=== PATIENT | male | born 1950 | race Caucasian/White ===

== ENCOUNTER → 2021-03-24 | Outpatient (CLI) | payer MEDICARE, OTHER | LOC: MRI 08:57 | PROVIDERS: ATTEND Urology | DX: N18.9 Chronic kidney disease, unspecified (principal) | CPT/HCPCS: 74181 ==

== ENCOUNTER → 2021-05-25 | Outpatient (CLI) | payer MEDICARE, OTHER | LOC: US 12:25 | PROVIDERS: ATTEND Urology | DX: N28.1 Cyst of kidney, acquired (principal) | CPT/HCPCS: 76770 ==

== ENCOUNTER → 2021-10-24 | Outpatient (CLI) | payer MEDICARE, OTHER | LOC: US 10:22 | PROVIDERS: ATTEND Urology | DX: N28.1 Cyst of kidney, acquired (principal) | CPT/HCPCS: 76770 ==

== ENCOUNTER → 2022-01-08 | Outpatient (CLI) | payer MEDICARE, OTHER | LOC: CT 15:26 | PROVIDERS: ATTEND Internal Medicine | DX: Z87.891 Personal history of nicotine dependence (principal) | CPT/HCPCS: 71250 ==

== ENCOUNTER → 2022-06-15 | Outpatient (CLI) | payer MEDICARE, OTHER | LOC: US 13:21 | PROVIDERS: ATTEND Urology | DX: N28.1 Cyst of kidney, acquired (principal) | CPT/HCPCS: 76770 ==

== ENCOUNTER → 2023-03-13 | Outpatient (REF) | payer MEDICARE, OTHER ==
[~2023-03-13] MED LIST: IOPAMIDOL 370 MG/ML 100 ML INFUS..BTL INJ ONE; SODIUM CHLORIDE 0.9% 0 ML ONE
[2023-03-13 14:11] LABS: CREATININE, SERUM 2.16 mg/dL (0.72-1.25)
== END ==
LOC: CT 13:09
PROVIDERS: ATTEND Urology
DX: N28.1 Cyst of kidney, acquired (principal)
CPT/HCPCS: 36415; 74178; 82565; 84520; Q9967; J7050

== ENCOUNTER 2023-11-26 02:32 | Emergency (ER) | payer MEDICARE, OTHER ==
[~2023-11-26] VITALS: Ht 172.7 cm; Wt 64.4 kg
[2023-11-26 04:07] VITALS: PULSE 87; RESP 17; TEMP 98.8
[2023-11-26] MEDS: ONDANSETRON HCL INJ 2MG/ML 2ML 2 MG/ML VIAL IV STA (04:39)
[2023-11-26] MEDS: FAMOTIDINE 20 MG/2 ML VIAL IV STA (04:40)
[2023-11-26 04:41] LABS: BASOPHILS % 0.3 % (0.0-1.0); EOSINOPHILS % 0.2 % (0.0-6.0); HEMATOCRIT 39.7 % (38.2-49.6); HEMOGLOBIN 12.2 g/dL (14.0-18.0); LYMPHOCYTES # (AUTO) 0.5 (1.0-3.2); LYMPHOCYTES % 8.3 % (18.0-39.1); MEAN CORPUSCULAR HEMOGLOBIN 29.1 pg (28-32); MEAN CORPUSCULAR HGB CONC 30.7 g/dL (31-35); MEAN CORPUSCULAR VOLUME 94.7 fL (81-99); MONOCYTES # (AUTO) 0.3 (0.2-0.8); MONOCYTES % 4.9 % (4.4-11.3); NEUTROPHILS # (AUTO) 5.3 (2.1-6.9); NEUTROPHILS % 86.1 % (38.7-80.0); PLATELET COUNT 125 x10e3/uL (140-360); RED BLOOD COUNT 4.19 x10e6/uL (4.3-5.7); RED CELL DISTRIBUTION WIDTH 12.7 % (11.7-14.4); WHITE BLOOD COUNT 6.15 x10e3/uL (4.8-10.8)
[2023-11-26] MEDS: SODIUM CHLORIDE 0.9% 1000ML 1,000 ML IV STA (04:43)
[2023-11-26 04:55] LABS: ALBUMIN 4.3 g/dL (3.5-5.0); ALBUMIN/GLOBULIN RATIO 1.2 (0.8-2.0); ANION GAP 18.3 mmol/L (8-16); BILIRUBIN,TOTAL 0.7 mg/dL (0.2-1.2); CREATININE, SERUM 2.21 mg/dL (0.72-1.25); POTASSIUM 4.3 mmol/L (3.5-5.1); TOTAL PROTEIN 7.8 g/dL (6.5-8.1)
[2023-11-26 04:56] LABS: TROPONIN I 0.007 ng/mL (0-0.300)
[2023-11-26] MEDS ORDERED: PEPCID20 MG PO ×2 (06:07→06:30)
[2023-11-26] MEDS ORDERED: PEPCID AC10 MG PO (06:07)
[2023-11-26] MEDS ORDERED: PAXLOVID 300-11 EAC1 PO ×2 (06:08→06:30)
[2023-11-26 06:18] VITALS: BP 155/100; PULSE 69; RESP 18; TEMP 97.8; O2SAT 96
== END 2023-11-26 06:35 | disposition home or self-care (01) ==
LOC: ER 02:35
DX: R10.13 Epigastric pain (principal); U07.1 COVID-19; R73.9 Hyperglycemia, unspecified; I10 Essential (primary) hypertension; E78.5 Hyperlipidemia, unspecified; K21.9 Gastro-esophageal reflux disease without esophagitis
CPT/HCPCS: 36415; 71045; 80053; 82550; 83690; 83880; 84484; 85025; 93005; 99284; J2405; J7030; U0002

== ENCOUNTER 2023-12-01 16:45 | Inpatient (IN) | payer MEDICARE, OTHER ==
[~2023-12-01] VITALS: Ht 172.7 cm; Wt 68.0 kg
[~2023-12-01 16:45] MED LIST changes: -IOPAMIDOL 370 MG/ML 100 ML INFUS..BTL INJ ONE; +PAXLOVID 300-11 EAC1 PO; +PEPCID AC10 MG PO; +PEPCID20 MG PO; -SODIUM CHLORIDE 0.9% 0 ML ONE
[2023-12-01 17:20] VITALS: TEMP 98.3
[2023-12-01] MEDS: ONDANSETRON HCL INJ 2MG/ML 2ML 2 MG/ML VIAL IV STA (18:04)
[2023-12-01] MEDS: SODIUM CHLORIDE 0.9% 1000ML 1,000 ML IV STA (18:04)
[2023-12-01] MEDS: Morphine 4mg INJECTION 4 MG/ML INJ IV STA (18:05)
[2023-12-01 18:12] LABS: BASOPHILS % 0.3 % (0.0-1.0); EOSINOPHILS % 0.2 % (0.0-6.0); HEMATOCRIT 40.3 % (38.2-49.6); HEMOGLOBIN 12.5 g/dL (14.0-18.0); LYMPHOCYTES # (AUTO) 0.4 (1.0-3.2); LYMPHOCYTES % 2.9 % (18.0-39.1); MEAN CORPUSCULAR HEMOGLOBIN 29.2 pg (28-32); MEAN CORPUSCULAR VOLUME 94.2 fL (81-99); MONOCYTES # (AUTO) 1.4 (0.2-0.8); MONOCYTES % 11.6 % (4.4-11.3); NEUTROPHILS # (AUTO) 10.4 (2.1-6.9); NEUTROPHILS % 84.5 % (38.7-80.0); PLATELET COUNT 168 x10e3/uL (140-360); RED BLOOD COUNT 4.28 x10e6/uL (4.3-5.7); RED CELL DISTRIBUTION WIDTH 12.7 % (11.7-14.4); WHITE BLOOD COUNT 12.29 x10e3/uL (4.8-10.8)
[2023-12-01 18:28] LABS: INR 1.13; PROTHROMBIN TIME 15.3 seconds (11.9-14.5)
[2023-12-01 18:29] LABS: PARTIAL THROMBOPLASTIN TIME 39.6 seconds (23.8-35.5)
[2023-12-01 18:40] LABS: ALBUMIN 3.7 g/dL (3.5-5.0); ALBUMIN/GLOBULIN RATIO 0.9 (0.8-2.0); ANION GAP 23.6 mmol/L (8-16); BILIRUBIN,TOTAL 2.1 mg/dL (0.2-1.2); CALCIUM 9.5 mg/dL (8.4-10.2); CREATININE, SERUM 2.34 mg/dL (0.72-1.25); MAGNESIUM 1.6 MG/DL (1.3-2.1); POTASSIUM 3.6 mmol/L (3.5-5.1); TOTAL PROTEIN 7.8 g/dL (6.5-8.1)
[2023-12-01 18:43] LABS: INFLUENZAE A&B ANTIGEN (RAPID) NEGATIVE (NEGATIVE); RESPIRATORY SYNC. VIRUS NEGATIVE (NEGATIVE)
[2023-12-01 18:45] LABS: TROPONIN I 0.006 ng/mL (0-0.300)
[2023-12-01 22:07] LABS: CLARITY,URINE CLEAR (CLEAR); COLOR,URINE YELLOW (YELLOW); GLUCOSE, URINE NEGATIVE (NEGATIVE); KETONES,URINE TRACE (NEGATIVE); LEUKOCYTE ESTERASE ,URINE NEGATIVE (NEGATIVE); NITRITE,URINE NEGATIVE (NEGATIVE); PH,URINE 5.5 (5 - 7); PROTEIN,URINE DIPSTICK 2+ (NEGATIVE)
[2023-12-01 22:08] LABS: BILIRUBIN,URINE 1+ (NEGATIVE); URINE UROBILINOGEN 4 mg/dL (0.2 - 1)
[2023-12-01 22:20] LABS: AMORPHOUS SEDIMENT,URINE FEW (FEW); BACTERIA,URINE MANY /HPF; EPITHELIAL CELLS,URINE FEW /LPF; TRANSITIONAL EPI CELLS,URINE FEW
[2023-12-01] MEDS ORDERED: ONDANSETRON HCL INJ 2MG/ML 2ML 2 MG/ML VIAL IV PRN (22:45)
[2023-12-01] MEDS: SODIUM CHLORIDE 0.9% 1000ML 1,000 ML IV SCH (23:09)
[2023-12-01 23:34] VITALS: PULSE 89; RESP 16; O2SAT 94
[2023-12-02] VITALS (11 sets, daily range): BP systolic 137–170; BP diastolic 72–86; PULSE 66–88; RESP 16–21; TEMP 98.3–99.1; O2SAT 92–98
[2023-12-02 05:36] LABS: BASOPHILS % 0.1 % (0.0-1.0); HEMATOCRIT 36.2 % (38.2-49.6); LYMPHOCYTES # (AUTO) 0.2 (1.0-3.2); LYMPHOCYTES % 2.4 % (18.0-39.1); MEAN CORPUSCULAR HEMOGLOBIN 28.9 pg (28-32); MEAN CORPUSCULAR HGB CONC 30.4 g/dL (31-35); MONOCYTES # (AUTO) 1.2 (0.2-0.8); MONOCYTES % 12.5 % (4.4-11.3); NEUTROPHILS # (AUTO) 7.8 (2.1-6.9); NEUTROPHILS % 84.6 % (38.7-80.0); PLATELET COUNT 121 x10e3/uL (140-360); RED BLOOD COUNT 3.81 x10e6/uL (4.3-5.7); RED CELL DISTRIBUTION WIDTH 12.8 % (11.7-14.4); WHITE BLOOD COUNT 9.23 x10e3/uL (4.8-10.8)
[2023-12-02 05:55] LABS: ALBUMIN/GLOBULIN RATIO 0.8 (0.8-2.0); ANION GAP 14.8 mmol/L (8-16); BILIRUBIN,TOTAL 3.2 mg/dL (0.2-1.2); CALCIUM 8.5 mg/dL (8.4-10.2); CREATININE, SERUM 1.94 mg/dL (0.72-1.25); POTASSIUM 3.8 mmol/L (3.5-5.1); TOTAL PROTEIN 6.7 g/dL (6.5-8.1)
[2023-12-02] MEDS ORDERED: ALBUTEROL/IPRATROPIUM 3 ML NEB NEB PRN (10:45)
[2023-12-02] MEDS ORDERED: MELATONIN 3 MG TAB PO PRN (10:45)
[2023-12-02] MEDS ORDERED: SIMETHICONE 80 MG CHEW PO PRN (10:45)
[2023-12-02] MEDS ORDERED: BUPIVACAINE HCL 0.5% INJ 30 ML VIAL INJ ONE (13:24)
[2023-12-02] MEDS ORDERED: ONDANSETRON HCL INJ 2MG/ML 2ML 2 MG/ML VIAL IV PRN (15:45)
[2023-12-02] MEDS: FAMOTIDINE 20 MG TAB PO SCH ×2 (17:00→21:40)
[2023-12-02] MEDS ORDERED: LIDOCAINE HCL 2% LOCAL INJ 5 ML SDV VIAL INJ ONE (17:45)
[2023-12-02] MEDS ORDERED: PROPOFOL IV EMULSION 10 MG/ML 20 ML VIAL ONE (17:45)
[2023-12-02] MEDS ORDERED: ACETAMINOPHEN 1000 MG/100 ML IV ONE (17:45)
[2023-12-02] MEDS ORDERED: SEVOFLURANE INHAL SOLN 250 ML PEN BTL ONE (17:45)
[2023-12-02] MEDS ORDERED: SUGAMMADEX SODIUM 200 MG/2 ML VIAL IV ONE (17:45)
[2023-12-02] MEDS ORDERED: ROCURONIUM BROMIDE 10 MG/ML 5ML VIAL IV ONE (17:45)
[2023-12-02] MEDS: DEXTROSE 5%/0.45% SOD CHL 1,000 ML IV SCH (17:57)
[2023-12-02] MEDS ORDERED: FENTANYL CITRATE/PF 100MCG/2 ML INJ ONE (18:03)
[2023-12-02] MEDS ORDERED: FAMOTIDINE 20 MG TAB PO SCH (21:00)
[2023-12-03] VITALS (10 sets, daily range): BP systolic 104–183; BP diastolic 68–98; PULSE 74–85; RESP 17–23; TEMP 97.3–98.4; O2SAT 95–99
[2023-12-03 05:48] LABS: BASOPHILS % 0.1 % (0.0-1.0); HEMOGLOBIN 10.1 g/dL (14.0-18.0); LYMPHOCYTES # (AUTO) 0.2 (1.0-3.2); LYMPHOCYTES % 2.4 % (18.0-39.1); MEAN CORPUSCULAR HEMOGLOBIN 29.4 pg (28-32); MEAN CORPUSCULAR HGB CONC 30.6 g/dL (31-35); MEAN CORPUSCULAR VOLUME 96.2 fL (81-99); MONOCYTES # (AUTO) 0.5 (0.2-0.8); MONOCYTES % 7.3 % (4.4-11.3); NEUTROPHILS # (AUTO) 6.1 (2.1-6.9); NEUTROPHILS % 89.6 % (38.7-80.0); PLATELET COUNT 125 x10e3/uL (140-360); RED BLOOD COUNT 3.43 x10e6/uL (4.3-5.7); WHITE BLOOD COUNT 6.75 x10e3/uL (4.8-10.8)
[2023-12-03 06:11] LABS: ALBUMIN 2.5 g/dL (3.5-5.0); ALBUMIN/GLOBULIN RATIO 0.7 (0.8-2.0); ANION GAP 14.2 mmol/L (8-16); BILIRUBIN,TOTAL 3.1 mg/dL (0.2-1.2); CALCIUM 8.3 mg/dL (8.4-10.2); POTASSIUM 4.2 mmol/L (3.5-5.1); TOTAL PROTEIN 5.9 g/dL (6.5-8.1)
[2023-12-03 06:54] LABS: ALBUMIN 2.5 g/dL (3.5-5.0); BILIRUBIN,DIRECT 2.7 mg/dL (0.0-0.5); TOTAL PROTEIN 5.9 g/dL (6.5-8.1)
[2023-12-03] MEDS: METOPROLOL TARTRATE INJ 1 MG/ML VIAL IV PRN (13:08)
[2023-12-03 14:24] LABS: HEPATITIS B SURFACE AG (P) Nonreactive
[2023-12-03 14:25] LABS: HEPATITIS C ANTIBODY Reactive
[2023-12-03] MEDS: METOPROLOL TARTRATE 25 MG TAB PO SCH (16:11)
[2023-12-03] MEDS: NIFEDIPINE CR 30 MG TAB PO SCH (16:11)
[2023-12-03 17:47] LABS: FERRITIN 1346.67 ng/mL (21.81-274.66)
[2023-12-03] MEDS: Morphine 4mg INJECTION 4 MG/ML INJ IV PRN (18:52)
[2023-12-03] MEDS: CYANOCOBALAMIN INJ 1,000 MCG/ML VIAL IM ONE (22:34)
[2023-12-04] VITALS (10 sets, daily range): BP systolic 125–158; BP diastolic 72–96; PULSE 64–93; RESP 18–21; TEMP 97.6–98.6; O2SAT 93–100
[2023-12-04] MEDS ORDERED: IRON SUCROSE 100 MG in SODIUM CHLORIDE 0.9% 100 ML IV SCH ×2 (05:00→09:00)
[2023-12-04 05:41] LABS: BASOPHILS % 0.1 % (0.0-1.0); HEMATOCRIT 36.6 % (38.2-49.6); HEMOGLOBIN 11.1 g/dL (14.0-18.0); LYMPHOCYTES # (AUTO) 0.3 (1.0-3.2); LYMPHOCYTES % 3.2 % (18.0-39.1); MEAN CORPUSCULAR HGB CONC 30.3 g/dL (31-35); MEAN CORPUSCULAR VOLUME 95.6 fL (81-99); MONOCYTES # (AUTO) 1.3 (0.2-0.8); MONOCYTES % 12.4 % (4.4-11.3); NEUTROPHILS % 83.8 % (38.7-80.0); PLATELET COUNT 157 x10e3/uL (140-360); RED BLOOD COUNT 3.83 x10e6/uL (4.3-5.7); WHITE BLOOD COUNT 10.69 x10e3/uL (4.8-10.8)
[2023-12-04 06:15] LABS: ANION GAP 14.1 mmol/L (8-16); CREATININE, SERUM 1.77 mg/dL (0.72-1.25); POTASSIUM 4.1 mmol/L (3.5-5.1)
[2023-12-04] MEDS ORDERED: ULTRAM 50MG50 MG PO (07:12)
[2023-12-04] MEDS: CYANOCOBALAMIN INJ 1,000 MCG/ML VIAL IM SCH (08:47)
[2023-12-04 09:28] LABS: ALBUMIN 2.8 g/dL (3.5-5.0); BILIRUBIN,DIRECT 0.8 mg/dL (0.0-0.5); BILIRUBIN,TOTAL 1.1 mg/dL (0.2-1.2); TOTAL PROTEIN 6.7 g/dL (6.5-8.1)
[2023-12-04] MEDS: SODIUM FERRIC GLUCONATE COMPLX 125 MG in SODIUM CHLORIDE 0.9% 100 ML IV SCH (12:06)
[2023-12-04] MEDS: HYDROCODONE/APAP 5MG-325MG TAB PO PRN (18:09)
[2023-12-05] VITALS (13 sets, daily range): BP systolic 107–124; BP diastolic 64–95; PULSE 61–88; RESP 18–22; TEMP 97.6–98.3; O2SAT 95–100
[2023-12-05 05:39] LABS: BASOPHILS % 0.1 % (0.0-1.0); EOSINOPHILS % 0.1 % (0.0-6.0); HEMATOCRIT 34.4 % (38.2-49.6); HEMOGLOBIN 10.2 g/dL (14.0-18.0); LYMPHOCYTES # (AUTO) 0.4 (1.0-3.2); LYMPHOCYTES % 4.1 % (18.0-39.1); MEAN CORPUSCULAR HEMOGLOBIN 28.7 pg (28-32); MEAN CORPUSCULAR HGB CONC 29.7 g/dL (31-35); MEAN CORPUSCULAR VOLUME 96.9 fL (81-99); MONOCYTES # (AUTO) 1.4 (0.2-0.8); MONOCYTES % 13.6 % (4.4-11.3); NEUTROPHILS # (AUTO) 8.4 (2.1-6.9); NEUTROPHILS % 81.5 % (38.7-80.0); PLATELET COUNT 149 x10e3/uL (140-360); RED BLOOD COUNT 3.55 x10e6/uL (4.3-5.7); RED CELL DISTRIBUTION WIDTH 13.1 % (11.7-14.4); WHITE BLOOD COUNT 10.24 x10e3/uL (4.8-10.8)
[2023-12-06 03:41] VITALS: BP 130/75; PULSE 67; RESP 18; TEMP 97.9; O2SAT 99
[2023-12-06 05:58] LABS: BASOPHILS % 0.3 % (0.0-1.0); EOSINOPHILS # (AUTO) 0.1 (0.0-0.4); EOSINOPHILS % 1.1 % (0.0-6.0); HEMATOCRIT 39.1 % (38.2-49.6); HEMOGLOBIN 11.6 g/dL (14.0-18.0); LYMPHOCYTES # (AUTO) 0.8 (1.0-3.2); LYMPHOCYTES % 7.3 % (18.0-39.1); MEAN CORPUSCULAR HEMOGLOBIN 28.9 pg (28-32); MEAN CORPUSCULAR HGB CONC 29.7 g/dL (31-35); MEAN CORPUSCULAR VOLUME 97.5 fL (81-99); MONOCYTES # (AUTO) 1.5 (0.2-0.8); MONOCYTES % 13.4 % (4.4-11.3); NEUTROPHILS # (AUTO) 8.9 (2.1-6.9); NEUTROPHILS % 76.9 % (38.7-80.0); PLATELET COUNT 179 x10e3/uL (140-360); RED BLOOD COUNT 4.01 x10e6/uL (4.3-5.7); RED CELL DISTRIBUTION WIDTH 12.9 % (11.7-14.4); WHITE BLOOD COUNT 11.52 x10e3/uL (4.8-10.8)
[2023-12-06 06:59] VITALS: PULSE 65; RESP 18; O2SAT 97
[2023-12-06 07:17] VITALS: BP 128/72; PULSE 77; RESP 20; TEMP 98.3; O2SAT 100
[2023-12-06 08:06] VITALS: BP 128/72; PULSE 77
[2023-12-06] MEDS ORDERED: NIFEDIPINE ER30 M1 PO (08:42)
[2023-12-06] MEDS ORDERED: LOPRESSOR25 MG PO (08:42)
[2023-12-06] MEDS ORDERED: PANTOPRAZOLE SO40 MG PO (08:42)
[2023-12-06] MEDS ORDERED: CEPHALEXIN500 MG PO (08:42)
[2023-12-09 06:46] LABS: HEPATITIS C VIRUS, RNA DIAGNOS HCV Not Detected
== END 2023-12-06 10:35 | disposition home or self-care (01) | DRG 417 ==
LOC: ER 16:59 → ERHOLD 22:36 → MED/SURG3 12-02 00:54
PROVIDERS: ADMIT Internal Medicine; ATTEND Internal Medicine
PROC: 0FT44ZZ Resection of Gallbladder, Percutaneous Endoscopic Approach (ICD-10-PCS; principal; 2023-12-02 14:40)
DX: K80.00 Calculus of gallbladder with acute cholecystitis without obstruction (principal); N17.0 Acute kidney failure with tubular necrosis; Q61.02 Congenital multiple renal cysts; C79.72 Secondary malignant neoplasm of left adrenal gland; D62 Acute posthemorrhagic anemia; N39.0 Urinary tract infection, site not specified; C64.1 Malignant neoplasm of right kidney, except renal pelvis; C64.2 Malignant neoplasm of left kidney, except renal pelvis; D69.6 Thrombocytopenia, unspecified; I10 Essential (primary) hypertension; K21.9 Gastro-esophageal reflux disease without esophagitis; N28.89 Other specified disorders of kidney and ureter; B19.20 Unspecified viral hepatitis C without hepatic coma; E78.5 Hyperlipidemia, unspecified; H91.93 Unspecified hearing loss, bilateral; K59.00 Constipation, unspecified; Z11.52 Encounter for screening for COVID-19; Z87.891 Personal history of nicotine dependence
CPT/HCPCS: 36415; 71250; 74176; 74181; 80048; 80053; 80076; 81001; 82550; 82607; 82728; 82746; 83540; 83615; 83690; 83735; 83880; 84466; 84484; 85025; 85045; 85610; 85730; 87400; 87420; 87522; 88304; 93005; 94799; 99252; 99284; J2001; J2270; J2405; J2470; J2543; J2916; J3420; J7030; J7050; U0002